=== PATIENT | female | born 1970 | race Caucasian/White ===

== ENCOUNTER 2023-11-17 14:36 | Inpatient (IN) | payer MEDICARE, OTHER ==
[~2023-11-17] VITALS: Ht 162.6 cm; Wt 47.6 kg
[2023-11-17 15:29] LABS: BASOPHILS # (AUTO) 0.1 K/uL (0.0-0.2); BASOPHILS % (AUTO) 2.1 % (0.0-2.0); EOSINOPHILS # (AUTO) 1.2 K/uL (0.0-0.7); EOSINOPHILS % (AUTO) 18.3 % (0.0-6.0); HEMATOCRIT 43 % (33-45); HEMOGLOBIN 14.8 g/dL (11.5-14.8); LYMPHOCYTES # (AUTO) 0.8 K/uL (0.8-4.8); LYMPHOCYTES % (AUTO) 11.7 % (20.0-44.0); MEAN CORPUSCULAR HEMOGLOBIN 31 PG (26.0-33.0); MEAN CORPUSCULAR HGB CONC 35 g/dl (31.0-36.0); MEAN CORPUSCULAR VOLUME 90 fL (82-100); MONOCYTES # (AUTO) 0.2 K/uL (0.1-1.30); MONOCYTES % (AUTO) 3.3 % (2.0-12.0); NEUTROPHILS # (AUTO) 4.2 K/uL (1.8-8.9); NEUTROPHILS % (AUTO) 64.6 % (43.0-81.0); PLATELET COUNT (AUTO) 289 K/uL (150-450); RED BLOOD CELL COUNT(AUTO) 4.77 MIL/uL (4.0-5.2); RED CELL DISTRIBUTION WIDTH 13.4 % (11.5-15.0); WHITE BLOOD COUNT (AUTO) 6.6 K/uL (4.3-11.0)
[2023-11-17] MEDS: IV NS 0.9% 500 ML BAG IV ONE (15:30)
[2023-11-17 15:35] LABS: CALCIUM, SERUM 9.3 mg/dL (8.5-10.1); CREATININE 0.5 mg/dL (0.6-1.3); POTASSIUM 4.4 mmol/L (3.5-5.1)
[2023-11-17] MEDS ORDERED: ACET-868 PO ×2 (15:48)
[2023-11-17] MEDS ORDERED: PERP4TAB11 PO (15:48)
[2023-11-17] MEDS ORDERED: LORA-259 PO (15:48)
[2023-11-17] MEDS ORDERED: MULT-213 PO (15:48)
[2023-11-17] MEDS ORDERED: MAGN400O6 PO (15:48)
[2023-11-17] MEDS ORDERED: DOCU100T2 PO (15:48)
[2023-11-17] MEDS ORDERED: GABA-532 PO (15:48)
[2023-11-17] MEDS ORDERED: SERT50TA PO (15:48)
[2023-11-17] MEDS ORDERED: AMIN30LI24 PO (15:48)
[2023-11-17] MEDS ORDERED: BISA10SU11 RC (15:48)
[2023-11-17] MEDS ORDERED: ACETAMINOPHEN 325 MG TABLET PO PRN (16:00)
[2023-11-17] MEDS ORDERED: MORPHINE SULFATE INJ 2 MG/ML DISP.SYRIN IV PRN (16:00)
[2023-11-17] MEDS ORDERED: ONDANSETRON HCL/PF 4 MG/2 ML VIAL IVP PRN (16:00)
[2023-11-17] MEDS ORDERED: hydrALAZINE HCL IV 20 MG VIAL IV PRN (16:00)
[2023-11-17] MEDS ORDERED: MAGNESIUM HYDROXIDE 30 ML UDC PO PRN (16:00)
[2023-11-17 18:41] VITALS: O2SAT 97
[2023-11-17 20:00] VITALS: BP 122/74; TEMP 98.1; O2SAT 98
[2023-11-17] MEDS: LORAZEPAM 1 MG TABLET PO PRN (20:35)
[2023-11-17] MEDS: ENOXAPARIN SODIUM 40 MG/0.4 ML DISP.SYRIN SQ SCH (21:02)
[2023-11-17] MEDS: PERPHENAZINE 2 MG TABLET PO SCH (22:00)
[2023-11-17] MEDS ORDERED: PERPHENAZINE 2 MG TABLET PO SCH (22:00)
[2023-11-18 06:34] LABS: BASOPHILS % (AUTO) 0.6 % (0.0-2.0); EOSINOPHILS # (AUTO) 0.1 K/uL (0.0-0.7); EOSINOPHILS % (AUTO) 1.7 % (0.0-6.0); HEMATOCRIT 38 % (33-45); HEMOGLOBIN 13.2 g/dL (11.5-14.8); LYMPHOCYTES # (AUTO) 2.6 K/uL (0.8-4.8); LYMPHOCYTES % (AUTO) 47.2 % (20.0-44.0); MEAN CORPUSCULAR HEMOGLOBIN 31 PG (26.0-33.0); MEAN CORPUSCULAR HGB CONC 35 g/dl (31.0-36.0); MEAN CORPUSCULAR VOLUME 91 fL (82-100); MONOCYTES # (AUTO) 0.3 K/uL (0.1-1.30); MONOCYTES % (AUTO) 5.9 % (2.0-12.0); NEUTROPHILS # (AUTO) 2.5 K/uL (1.8-8.9); NEUTROPHILS % (AUTO) 44.6 % (43.0-81.0); PLATELET COUNT (AUTO) 254 K/uL (150-450); RED CELL DISTRIBUTION WIDTH 12.8 % (11.5-15.0); WHITE BLOOD COUNT (AUTO) 5.6 K/uL (4.3-11.0)
[2023-11-18 06:49] LABS: ALBUMIN 3.2 g/dL (3.4-5.0); BILIRUBIN,TOTAL 0.7 mg/dL (0.2-1.0); CALCIUM, SERUM 9.4 mg/dL (8.5-10.1); CREATININE 0.5 mg/dL (0.6-1.3); PHOSPHORUS 4.1 mg/dL (2.5-4.9); POTASSIUM 3.5 mmol/L (3.5-5.1); TOTAL PROTEIN, SERUM 6.4 g/dL (6.4-8.2)
[2023-11-18 08:00] VITALS: BP 106/60; TEMP 97.9; O2SAT 98
[2023-11-18] MEDS: DOCUSATE SODIUM 100 MG CAPSULE PO SCH (09:00)
[2023-11-18] MEDS: SERTRALINE HCL 50 MG TABLET PO SCH (09:00)
[2023-11-18] MEDS: GABAPENTIN 100 MG CAPSULE PO SCH (09:00)
[2023-11-18 16:00] VITALS: BP 119/54; TEMP 98.2; O2SAT 96
[2023-11-18 20:15] VITALS: BP 121/76; TEMP 98.1; O2SAT 95
[2023-11-19 08:00] VITALS: BP 100/67; TEMP 98.2; O2SAT 94
[2023-11-19 16:00] VITALS: BP 130/53; TEMP 98.6; O2SAT 98
[2023-11-19 20:00] VITALS: BP 123/51; TEMP 98.1; O2SAT 97
[2023-11-20 08:00] VITALS: BP 111/63; TEMP 98.1; O2SAT 100
== END 2023-11-20 15:15 | DRG 640 ==
LOC: ER 14:47 → MED 18:26
PROVIDERS: ADMIT Internal Medicine; ATTEND Internal Medicine
DX: R62.7 Adult failure to thrive (principal); E43 Unspecified severe protein-calorie malnutrition; Z68.1 Body mass index [BMI] 19.9 or less, adult; F32.3 Major depressive disorder, single episode, severe with psychotic features; R13.10 Dysphagia, unspecified; M35.00 Sjogren syndrome, unspecified; J44.9 Chronic obstructive pulmonary disease, unspecified; F41.9 Anxiety disorder, unspecified; Z66 Do not resuscitate; Z79.899 Other long term (current) drug therapy
CPT/HCPCS: 36415; 80048-TC; 80053-TC; 83735-TC; 84100-TC; 85025-TC; 87081-TC; 92526; 92611-TC; G0378; J1650; J7040; Q0175

== ENCOUNTER 2023-12-27 15:09 | Inpatient (IN) | payer MEDICARE, OTHER ==
[~2023-12-27] VITALS: Ht 162.6 cm; Wt 44.1 kg
[~2023-12-27 15:09] MED LIST: ACET-868 PO; AMIN30LI24 PO; BISA10SU11 RC; DOCU100T2 PO; GABA-532 PO; LORA-259 PO; MAGN400O6 PO; MULT-213 PO; PERP4TAB11 PO; SERT50TA PO
[2023-12-27] MEDS: KETOROLAC TROMETHAMINE 15 MG/ML VIAL IV ONE (16:00)
[2023-12-27] MEDS ORDERED: NA P133E RC (16:14)
[2023-12-27] MEDS ORDERED: MEGE400O6 PO (16:14)
[2023-12-27] MEDS: IV NS 0.9% 1,000 ML BAG IV ONE (16:14)
[2023-12-27 16:36] LABS: BASOPHILS # (AUTO) 0.1 K/uL (0.0-0.2); BASOPHILS % (AUTO) 0.9 % (0.0-2.0); EOSINOPHILS # (AUTO) 0.1 K/uL (0.0-0.7); EOSINOPHILS % (AUTO) 1.8 % (0.0-6.0); HEMATOCRIT 45 % (33-45); HEMOGLOBIN 15.6 g/dL (11.5-14.8); LYMPHOCYTES # (AUTO) 2.5 K/uL (0.8-4.8); LYMPHOCYTES % (AUTO) 36.6 % (20.0-44.0); MEAN CORPUSCULAR HEMOGLOBIN 32 PG (26.0-33.0); MEAN CORPUSCULAR HGB CONC 35 g/dl (31.0-36.0); MEAN CORPUSCULAR VOLUME 91 fL (82-100); MONOCYTES # (AUTO) 0.4 K/uL (0.1-1.30); MONOCYTES % (AUTO) 5.7 % (2.0-12.0); NEUTROPHILS # (AUTO) 3.8 K/uL (1.8-8.9); PLATELET COUNT (AUTO) 280 K/uL (150-450); RED BLOOD CELL COUNT(AUTO) 4.91 MIL/uL (4.0-5.2); RED CELL DISTRIBUTION WIDTH 13.3 % (11.5-15.0); WHITE BLOOD COUNT (AUTO) 6.9 K/uL (4.3-11.0)
[2023-12-27 16:45] LABS: CALCIUM, SERUM 9.3 mg/dL (8.5-10.1); CARBON DIOXIDE 27 mmol/L (21-32); CHLORIDE 102 mmol/L (98-107); CREATININE 0.8 mg/dL (0.6-1.3); GLUCOSE 162 mg/dL (74-106); POTASSIUM 4.1 mmol/L (3.5-5.1); SODIUM SERUM 140 mmol/L (136-145); UREA NITROGEN, BLOOD 15 mg/dL (7-18)
[2023-12-27 16:51] LABS: ALANINE AMINOTRANSFERASE 26 U/L (12-78); ALBUMIN 3.9 g/dL (3.4-5.0); ALKALINE PHOSPHATASE 87 U/L (46-116); ASPARTATE AMINOTRANSFERASE 27 U/L (15-37); BILIRUBIN,TOTAL 0.8 mg/dL (0.2-1.0); LIPASE 23 U/L (16-77); TOTAL PROTEIN, SERUM 7.3 g/dL (6.4-8.2)
[2023-12-27 16:52] LABS: INR 1.08 (0.91-1.10); PARTIAL THROMBOPLASTIN TIME 23.5 SEC (24.3-34.3)
[2023-12-27] MEDS ORDERED: ACETAMINOPHEN 325 MG TABLET PO PRN (17:00)
[2023-12-27] MEDS ORDERED: MORPHINE SULFATE INJ 2 MG/ML DISP.SYRIN IV PRN (17:00)
[2023-12-27] MEDS ORDERED: LORAZEPAM INJ 2 MG/ML VIAL IV PRN (17:00)
[2023-12-27 17:04] LABS: PROTHROMBIN TIME 11.1 SECS (9.2-11.1)
[2023-12-27] MEDS ORDERED: KETOROLAC TROMETHAMINE 15 MG/ML VIAL ONE (17:06)
[2023-12-27 17:07] LABS: SERUM AMMONIA 23 umol/L (11-32)
[2023-12-27] MEDS: MEGESTROL ACETATE SUSP 400 MG/10 ML UDC PO SCH (18:05)
[2023-12-27 18:36] VITALS: BP 115/75; TEMP 97.7; O2SAT 99
[2023-12-27] MEDS: HEPARIN SODIUM, PORCINE 5000 UNITS/1 ML VIAL SQ SCH (21:00)
[2023-12-27] MEDS: IV D5/0.45 NACL 1,000 ML IV PRN (21:06)
[2023-12-27 22:28] VITALS: BP 122/77; TEMP 97.7; O2SAT 98
[2023-12-28 07:00] VITALS: BP 116/74; TEMP 98.2; O2SAT 99
[2023-12-28] MEDS: PERMETHRIN 5% CRM 60 GM TUBE TP ONE (08:53)
[2023-12-28] MEDS: GABAPENTIN 100 MG CAPSULE PO SCH (08:54)
[2023-12-28] MEDS: SERTRALINE HCL 50 MG TABLET PO SCH (08:54)
[2023-12-28] MEDS: ENSURE ENLIVE 237 ML LIQUID (VANILLA) PO SCH (13:26)
[2023-12-28 16:00] VITALS: BP 143/81; TEMP 98.4; O2SAT 100
[2023-12-28 20:00] VITALS: BP 138/84; TEMP 97.7; O2SAT 96
[2023-12-29] MEDS: ONDANSETRON HCL/PF 4 MG/2 ML VIAL IVP PRN (05:39)
[2023-12-29 08:00] VITALS: BP 121/81; TEMP 97.7; O2SAT 99
[2023-12-29 16:00] VITALS: BP 116/82; TEMP 97.5; O2SAT 99
[2023-12-29 20:22] VITALS: BP 119/82; TEMP 97.7; O2SAT 99
[2023-12-30 08:00] VITALS: BP 101/38; TEMP 97.1; O2SAT 100
[2023-12-30] MEDS ORDERED: RISP0.5T5 PO (08:45)
== END 2023-12-30 15:15 | DRG 640 ==
LOC: ER 15:14 → MED 17:13 → TELE 18:03 → MED 20:48
PROVIDERS: ADMIT Internal Medicine; ATTEND Internal Medicine
DX: R62.7 Adult failure to thrive (principal); E43 Unspecified severe protein-calorie malnutrition; Z68.1 Body mass index [BMI] 19.9 or less, adult; F33.9 Major depressive disorder, recurrent, unspecified; M35.00 Sjogren syndrome, unspecified; F41.9 Anxiety disorder, unspecified; F25.9 Schizoaffective disorder, unspecified; E88.09 Other disorders of plasma-protein metabolism, not elsewhere classified; J44.9 Chronic obstructive pulmonary disease, unspecified; R13.10 Dysphagia, unspecified; F39 Unspecified mood [affective] disorder; F29 Unspecified psychosis not due to a substance or known physiological condition; G31.84 Mild cognitive impairment of uncertain or unknown etiology
CPT/HCPCS: 36415; 80048-TC; 80076-TC; 82140-TC; 82962-TC; 83690-TC; 84443-TC; 84484-TC; 85025-TC; 85730-TC; 92526; 92611-TC; A4223; G0378; J1644; J1885; J2405; J3490

== ENCOUNTER 2024-01-10 14:25 | Inpatient (IN) | payer MEDICARE, OTHER ==
[~2024-01-10] VITALS: Ht 162.6 cm; Wt 33.6 kg
[~2024-01-10 14:25] MED LIST changes: -BISA10SU11 RC; +MEGE400O6 PO; +NA P133E RC; +RISP0.5T5 PO
[2024-01-10] MEDS ORDERED: LORAZEPAM INJ 2 MG/ML VIAL ONE (15:19)
[2024-01-10] MEDS: LORAZEPAM INJ 2 MG/ML VIAL IM ONE (15:24)
[2024-01-10] MEDS: CEFEPIME 1 GM in IV D5W 50 ML IV ONE (15:30)
[2024-01-10] MEDS: IV LR 1000 ML 1,000 ML BAG IV ONE (15:37)
[2024-01-10] MEDS: VANCOMYCIN 1 GM in IV D5W 250 ML IV ONE (16:00)
[2024-01-10 16:29] LABS: BASOPHILS # (AUTO) 0.1 K/uL (0.0-0.2); BASOPHILS % (AUTO) 0.3 % (0.0-2.0); EOSINOPHILS % (AUTO) 0.1 % (0.0-6.0); HEMATOCRIT 56 % (33-45); HEMOGLOBIN 18.6 g/dL (11.5-14.8); LYMPHOCYTES # (AUTO) 2.3 K/uL (0.8-4.8); MEAN CORPUSCULAR HEMOGLOBIN 32 PG (26.0-33.0); MEAN CORPUSCULAR HGB CONC 33 g/dl (31.0-36.0); MEAN CORPUSCULAR VOLUME 95 fL (82-100); MONOCYTES # (AUTO) 1.9 K/uL (0.1-1.30); MONOCYTES % (AUTO) 10.7 % (2.0-12.0); NEUTROPHILS # (AUTO) 13.5 K/uL (1.8-8.9); NEUTROPHILS % (AUTO) 75.9 % (43.0-81.0); PLATELET COUNT (AUTO) 353 K/uL (150-450); RED BLOOD CELL COUNT(AUTO) 5.87 MIL/uL (4.0-5.2); RED CELL DISTRIBUTION WIDTH 14.6 % (11.5-15.0); WHITE BLOOD COUNT (AUTO) 17.7 K/uL (4.3-11.0)
[2024-01-10] MEDS ORDERED: BISA10SU11 RC (16:37)
[2024-01-10 16:43] LABS: INR 1.89 (0.91-1.10); PROTHROMBIN TIME 18.9 SECS (9.2-11.1)
[2024-01-10 16:53] LABS: ALANINE AMINOTRANSFERASE 57 U/L (12-78); ALBUMIN 4.4 g/dL (3.4-5.0); ALKALINE PHOSPHATASE 84 U/L (46-116); ASPARTATE AMINOTRANSFERASE 61 U/L (15-37); BILIRUBIN,DIRECT 0.6 mg/dL (0.0-0.2); BILIRUBIN,TOTAL 1.6 mg/dL (0.2-1.0); CALCIUM, SERUM 10.6 mg/dL (8.5-10.1); CARBON DIOXIDE 30 mmol/L (21-32); CHLORIDE 119 mmol/L (98-107); CREATININE 1.5 mg/dL (0.6-1.3); GLUCOSE 138 mg/dL (74-106); POTASSIUM 3.5 mmol/L (3.5-5.1); TOTAL PROTEIN, SERUM 8.3 g/dL (6.4-8.2)
[2024-01-10 16:54] LABS: SODIUM SERUM 163 mmol/L (136-145); UREA NITROGEN, BLOOD 91 mg/dL (7-18)
[2024-01-10 16:55] LABS: LACTIC ACID 3.2 mmol/L (0.4-2.0)
[2024-01-10] MEDS ORDERED: ONDANSETRON HCL/PF 4 MG/2 ML VIAL IVP PRN (18:00)
[2024-01-10] MEDS ORDERED: MAGNESIUM HYDROXIDE 30 ML UDC PO PRN (18:00)
[2024-01-10] MEDS ORDERED: MAG HYDROX/AL HYDROX/SIMETH 30 ML UDC PO PRN (18:00)
[2024-01-10] MEDS ORDERED: ACETAMINOPHEN 325 MG TABLET PO PRN (18:00)
[2024-01-10] MEDS: IV D5/0.45 NACL 1,000 ML IV SCH (18:42)
[2024-01-11 12:26] LABS: BASOPHILS # (AUTO) 0.1 K/uL (0.0-0.2); BASOPHILS % (AUTO) 0.5 % (0.0-2.0); EOSINOPHILS # (AUTO) 0.2 K/uL (0.0-0.7); EOSINOPHILS % (AUTO) 1.8 % (0.0-6.0); HEMATOCRIT 41 % (33-45); HEMOGLOBIN 13.8 g/dL (11.5-14.8); LYMPHOCYTES # (AUTO) 2.3 K/uL (0.8-4.8); LYMPHOCYTES % (AUTO) 20.3 % (20.0-44.0); MEAN CORPUSCULAR HEMOGLOBIN 32 PG (26.0-33.0); MEAN CORPUSCULAR HGB CONC 34 g/dl (31.0-36.0); MEAN CORPUSCULAR VOLUME 94 fL (82-100); MONOCYTES # (AUTO) 1.2 K/uL (0.1-1.30); MONOCYTES % (AUTO) 10.5 % (2.0-12.0); NEUTROPHILS # (AUTO) 7.7 K/uL (1.8-8.9); NEUTROPHILS % (AUTO) 66.9 % (43.0-81.0); PLATELET COUNT (AUTO) 199 K/uL (150-450); RED BLOOD CELL COUNT(AUTO) 4.33 MIL/uL (4.0-5.2); RED CELL DISTRIBUTION WIDTH 14.2 % (11.5-15.0); WHITE BLOOD COUNT (AUTO) 11.5 K/uL (4.3-11.0)
[2024-01-11 12:31] LABS: CALCIUM, SERUM 8.8 mg/dL (8.5-10.1); CREATININE 0.6 mg/dL (0.6-1.3); MAGNESIUM 2.2 mg/dL (1.8-2.4); PHOSPHORUS 1.3 mg/dL (2.5-4.9); POTASSIUM 3.2 mmol/L (3.5-5.1)
[2024-01-11] MEDS: NEUTRA PHOS 1 POWD.PACKET PO ONE (15:30)
[2024-01-11] MEDS: ENSURE ENLIVE 237 ML LIQUID (VANILLA) PO SCH (16:43)
[2024-01-11 20:00] VITALS: BP 119/72; TEMP 97.7; O2SAT 100
[2024-01-12 04:00] VITALS: BP 137/88; TEMP 97.7; O2SAT 99
[2024-01-12 08:00] VITALS: BP 127/77; TEMP 97.5; O2SAT 100
[2024-01-12] MEDS: MUPIROCIN OINT 2% 22 GM TUBE NS SCH (09:01)
[2024-01-12] MEDS: Z GUARD REMEDY 4 OZ OINT TP PRN (09:02)
[2024-01-12] MEDS: POTASSIUM CHLORIDE 20 MEQ TAB.PRT.SR PO ONE (10:41)
[2024-01-12 16:00] VITALS: BP 126/83; TEMP 97.7; O2SAT 100
[2024-01-12 20:00] VITALS: BP 125/87; TEMP 97.5; O2SAT 100
[2024-01-13 04:00] VITALS: BP 115/68; TEMP 98.1; O2SAT 98
[2024-01-13 09:33] LABS: BASOPHILS % (AUTO) 0.2 % (0.0-2.0); EOSINOPHILS # (AUTO) 0.1 K/uL (0.0-0.7); EOSINOPHILS % (AUTO) 1.8 % (0.0-6.0); HEMATOCRIT 39 % (33-45); HEMOGLOBIN 13.6 g/dL (11.5-14.8); LYMPHOCYTES # (AUTO) 1.8 K/uL (0.8-4.8); LYMPHOCYTES % (AUTO) 23.9 % (20.0-44.0); MEAN CORPUSCULAR HEMOGLOBIN 32 PG (26.0-33.0); MEAN CORPUSCULAR HGB CONC 35 g/dl (31.0-36.0); MEAN CORPUSCULAR VOLUME 91 fL (82-100); MONOCYTES # (AUTO) 0.6 K/uL (0.1-1.30); MONOCYTES % (AUTO) 8.5 % (2.0-12.0); NEUTROPHILS # (AUTO) 4.9 K/uL (1.8-8.9); NEUTROPHILS % (AUTO) 65.6 % (43.0-81.0); PLATELET COUNT (AUTO) 197 K/uL (150-450); RED BLOOD CELL COUNT(AUTO) 4.31 MIL/uL (4.0-5.2); RED CELL DISTRIBUTION WIDTH 13.6 % (11.5-15.0); WHITE BLOOD COUNT (AUTO) 7.4 K/uL (4.3-11.0)
[2024-01-13 09:37] LABS: CALCIUM, SERUM 8.2 mg/dL (8.5-10.1); CREATININE 0.5 mg/dL (0.6-1.3)
[2024-01-13 10:06] LABS: POTASSIUM 2.6 mmol/L (3.5-5.1)
[2024-01-13] MEDS: IV D5/0.45 NACL 1,000 ML IV PRN (10:58)
[2024-01-13] MEDS: Potassium Chloride 20 MEQ in IV D5W 100 ML IV SCH (10:58)
[2024-01-13] MEDS ORDERED: POTASSIUM CL. PREMIX PERIPHER. 50 ML IV SCH (11:00)
[2024-01-13] MEDS: POTASSIUM CHLORIDE 20 MEQ TAB.PRT.SR PO ONE (11:22)
[2024-01-13 12:00] VITALS: BP 109/72; TEMP 98.4; O2SAT 98
[2024-01-13 15:06] LABS: CALCIUM, SERUM 8.3 mg/dL (8.5-10.1); CREATININE 0.4 mg/dL (0.6-1.3); POTASSIUM 3.3 mmol/L (3.5-5.1)
[2024-01-13 20:00] VITALS: BP 134/76; TEMP 98.6
[2024-01-14 04:00] VITALS: BP 144/85; TEMP 98.3; O2SAT 97
[2024-01-14 08:00] VITALS: BP 134/69; TEMP 97.8; O2SAT 98
[2024-01-14 16:00] VITALS: BP 129/70; O2SAT 94
[2024-01-14 20:00] VITALS: BP 133/62; TEMP 96.9; O2SAT 100
[2024-01-15 04:00] VITALS: BP 133/61; TEMP 96.8; O2SAT 100
[2024-01-15] MEDS: OLANZAPINE ZYDIS 5 MG TAB.RAPDIS PO SCH (14:59)
[2024-01-15 16:00] VITALS: BP 146/93; TEMP 97.7; O2SAT 96
[2024-01-15 20:00] VITALS: BP 130/84; TEMP 97.6; O2SAT 97
[2024-01-15] MEDS ORDERED: FLUPHENAZINE HCL 10 MG TABLET PO SCH ×2 (21:00→22:00)
[2024-01-15] MEDS: MIRTAZAPINE 15 MG TABLET PO SCH (21:26)
[2024-01-16 04:00] VITALS: BP 106/64; TEMP 97.9; O2SAT 100
[2024-01-16 08:00] VITALS: BP 150/92; TEMP 97.3; O2SAT 93
[2024-01-16] MEDS: SERTRALINE HCL 50 MG TABLET PO SCH (08:36)
[2024-01-16] MEDS ORDERED: LORAZEPAM ORAL SOLN 2 MG/ML ORAL.CONC PO SCH (09:00)
[2024-01-16] MEDS ORDERED: LORAZEPAM 1 MG TABLET PO SCH (09:00)
[2024-01-16 12:37] LABS: BILIRUBIN,TOTAL 0.7 mg/dL (0.2-1.0); CALCIUM, SERUM 8.9 mg/dL (8.5-10.1); CREATININE 0.6 mg/dL (0.6-1.3); MAGNESIUM 1.4 mg/dL (1.8-2.4); PHOSPHORUS 2.4 mg/dL (2.5-4.9); POTASSIUM 2.8 mmol/L (3.5-5.1); TOTAL PROTEIN, SERUM 6.6 g/dL (6.4-8.2)
[2024-01-16 13:24] LABS: BASOPHILS % (AUTO) 0.5 % (0.0-2.0); EOSINOPHILS # (AUTO) 0.2 K/uL (0.0-0.7); EOSINOPHILS % (AUTO) 2.5 % (0.0-6.0); HEMATOCRIT 42 % (33-45); HEMOGLOBIN 14.6 g/dL (11.5-14.8); LYMPHOCYTES # (AUTO) 2.1 K/uL (0.8-4.8); LYMPHOCYTES % (AUTO) 22.1 % (20.0-44.0); MEAN CORPUSCULAR HEMOGLOBIN 31 PG (26.0-33.0); MEAN CORPUSCULAR HGB CONC 35 g/dl (31.0-36.0); MEAN CORPUSCULAR VOLUME 90 fL (82-100); MONOCYTES # (AUTO) 0.8 K/uL (0.1-1.30); MONOCYTES % (AUTO) 8.9 % (2.0-12.0); NEUTROPHILS # (AUTO) 6.3 K/uL (1.8-8.9); PLATELET COUNT (AUTO) 233 K/uL (150-450); RED BLOOD CELL COUNT(AUTO) 4.65 MIL/uL (4.0-5.2); RED CELL DISTRIBUTION WIDTH 13.1 % (11.5-15.0); WHITE BLOOD COUNT (AUTO) 9.5 K/uL (4.3-11.0)
[2024-01-16] MEDS: Magnesium 1GM/D5W 100ML PREMIX 100 ML IV SCH (14:06)
[2024-01-16 16:00] VITALS: BP 120/77; TEMP 97.3; O2SAT 100
[2024-01-16] MEDS: POTASSIUM CL. PREMIX PERIPHER. 50 ML IV SCH (16:13)
[2024-01-16] MEDS: Sodium Phosphate 15 MMOL in IV NS 0.9% 245 ML IV SCH (18:21)
[2024-01-16 20:00] VITALS: BP 129/84; TEMP 97.9; O2SAT 96
[2024-01-17 04:00] VITALS: BP 139/85; TEMP 97.8; O2SAT 99
[2024-01-17 08:00] VITALS: BP 138/78; TEMP 97.7; O2SAT 99
[2024-01-17 11:17] LABS: BASOPHILS % (AUTO) 0.5 % (0.0-2.0); EOSINOPHILS # (AUTO) 0.2 K/uL (0.0-0.7); EOSINOPHILS % (AUTO) 2.6 % (0.0-6.0); HEMATOCRIT 41 % (33-45); HEMOGLOBIN 14.2 g/dL (11.5-14.8); LYMPHOCYTES # (AUTO) 1.8 K/uL (0.8-4.8); LYMPHOCYTES % (AUTO) 19.6 % (20.0-44.0); MEAN CORPUSCULAR HEMOGLOBIN 32 PG (26.0-33.0); MEAN CORPUSCULAR HGB CONC 35 g/dl (31.0-36.0); MEAN CORPUSCULAR VOLUME 91 fL (82-100); MONOCYTES # (AUTO) 0.8 K/uL (0.1-1.30); MONOCYTES % (AUTO) 8.6 % (2.0-12.0); NEUTROPHILS # (AUTO) 6.4 K/uL (1.8-8.9); NEUTROPHILS % (AUTO) 68.7 % (43.0-81.0); PLATELET COUNT (AUTO) 179 K/uL (150-450); RED CELL DISTRIBUTION WIDTH 13.6 % (11.5-15.0); WHITE BLOOD COUNT (AUTO) 9.3 K/uL (4.3-11.0)
[2024-01-17 12:17] LABS: CALCIUM, SERUM 9.1 mg/dL (8.5-10.1); CREATININE 0.4 mg/dL (0.6-1.3); POTASSIUM 2.9 mmol/L (3.5-5.1)
[2024-01-17 14:00] VITALS: BP 126/83; TEMP 97.5; O2SAT 99
[2024-01-17 16:00] VITALS: BP 126/83; TEMP 97.5; O2SAT 99
[2024-01-17] MEDS: POTASSIUM CL. PREMIX PERIPHER. 50 ML IV SCH (16:05)
[2024-01-17 16:08] LABS: MAGNESIUM 2.1 mg/dL (1.8-2.4); PHOSPHORUS 3.3 mg/dL (2.5-4.9)
[2024-01-17 20:00] VITALS: BP 113/81; TEMP 99; O2SAT 96
[2024-01-18 04:00] VITALS: BP 127/72; TEMP 98.8; O2SAT 96
[2024-01-18 08:00] VITALS: BP 140/88; TEMP 97.7; O2SAT 96
[2024-01-18] MEDS: POTASSIUM CL. PREMIX PERIPHER. 50 ML IV SCH (08:15)
[2024-01-18] MEDS: Potassium Chloride 20 MEQ in IV D5/0.45 NACL 1,000 ML IV SCH (08:44)
[2024-01-18] MEDS ORDERED: ANESTHESIA TRAY IN PYXIS 1 EA TRAY MC ONE (11:24)
[2024-01-18 11:37] LABS: CALCIUM, SERUM 9.2 mg/dL (8.5-10.1); CREATININE 0.4 mg/dL (0.6-1.3); POTASSIUM 4.4 mmol/L (3.5-5.1)
[2024-01-18 11:43] LABS: INR 1.37 (0.91-1.10); PROTHROMBIN TIME 14.2 SECS (9.2-11.1)
[2024-01-18] MEDS: IV D5/0.45 NACL 1,000 ML IV PRN (13:28)
[2024-01-18 16:00] VITALS: BP 135/65; TEMP 98.4; O2SAT 96
[2024-01-18 20:00] VITALS: BP 119/71; TEMP 97.8; O2SAT 100
[2024-01-19 04:00] VITALS: BP 110/76; TEMP 97.6; O2SAT 100
[2024-01-19 08:00] VITALS: BP 148/81; TEMP 96.9; O2SAT 100
[2024-01-19] MEDS ORDERED: JEVITY 1.2 CAL 1,000 ML BOTTLE GT PRN (10:30)
[2024-01-19] MEDS ORDERED: OLANZAPINE 10 MG VIAL IM PRN (11:30)
[2024-01-19] MEDS: JEVITY 1.2 CAL 1,000 ML BOTTLE GT PRN (14:45)
[2024-01-19 16:00] VITALS: BP 143/78; TEMP 97.9; O2SAT 100
[2024-01-19 20:00] VITALS: BP 138/85; TEMP 97.7; O2SAT 97
[2024-01-20 04:00] VITALS: BP 126/71; TEMP 97.7; O2SAT 99
[2024-01-20 08:00] VITALS: BP 126/56; TEMP 97.3; O2SAT 99
[2024-01-20] MEDS ORDERED: SERT50TA GT (09:45)
[2024-01-20] MEDS ORDERED: MIRT-121 GT (09:45)
[2024-01-20] MEDS ORDERED: AMIN30LI24 GT (09:45)
[2024-01-20] MEDS ORDERED: OLAN5TAB6 GT (09:45)
[2024-01-20] MEDS ORDERED: PERP4TAB11 GT (09:45)
[2024-01-20] MEDS ORDERED: LORA-259 GT (09:45)
[2024-01-20] MEDS ORDERED: MULT-213 GT (09:45)
[2024-01-20] MEDS ORDERED: GABA-532 GT (09:45)
[2024-01-20] MEDS ORDERED: LACT-209 GT (09:45)
== END 2024-01-20 14:47 | DRG 640 ==
LOC: ER 14:27 → TELE1 17:20 → MEDSG1 18:36
PROVIDERS: ADMIT Internal Medicine; ATTEND Nurse Practitioner Acute Care
PROC: 0DH63UZ Insertion of Feeding Device into Stomach, Percutaneous Approach (ICD-10-PCS; principal; 2024-01-18)
DX: R62.7 Adult failure to thrive (principal); E43 Unspecified severe protein-calorie malnutrition; G93.41 Metabolic encephalopathy; I21.A1 Myocardial infarction type 2; N17.0 Acute kidney failure with tubular necrosis; E87.0 Hyperosmolality and hypernatremia; R64 Cachexia; E87.20 Acidosis, unspecified; F33.2 Major depressive disorder, recurrent severe without psychotic features; Z68.1 Body mass index [BMI] 19.9 or less, adult; E86.0 Dehydration; E86.1 Hypovolemia; K29.70 Gastritis, unspecified, without bleeding; M34.9 Systemic sclerosis, unspecified; D75.1 Secondary polycythemia; E83.39 Other disorders of phosphorus metabolism; E83.42 Hypomagnesemia; E87.6 Hypokalemia; E88.09 Other disorders of plasma-protein metabolism, not elsewhere classified; F41.9 Anxiety disorder, unspecified; J44.9 Chronic obstructive pulmonary disease, unspecified; M89.8X9 Other specified disorders of bone, unspecified site; R13.10 Dysphagia, unspecified; D72.829 Elevated white blood cell count, unspecified; Z73.6 Limitation of activities due to disability; F29 Unspecified psychosis not due to a substance or known physiological condition; F25.1 Schizoaffective disorder, depressive type
CPT/HCPCS: 36415; 43246; 71045-TC; 76770-TC; 80048-TC; 80053-TC; 80076-TC; 83605-TC; 83735-TC; 84100-TC; 84484-TC; 85025-TC; 85730-TC; 86850-TC; 87040-TC; 87081-TC; A4223; A9563; G0378; J0690; J0692; J2060; J2704; J3370; J3475; J3480; J3490; J7030; J7050; J7060; J7120